=== PATIENT | female | born 1995 | race Caucasian/White ===

== ENCOUNTER 2018-07-12 19:21 | Inpatient (IN) | payer OTHER ==
[~2018-07-12] VITALS: Ht 152.4 cm; Wt 53.5 kg
[~2018-07-12 19:21] MED LIST: ACETAMINOPHEN325 M1 PO; CIPROFLOXACIN500 M1 PO; CLONAZEPAM 0.50.5 M1 PO; DEPRESSION MEDS; DOXYCYCLINE 10100 MG PO; FLAGYL500 MG PO; HYDROCODON-ACE1 EACH PO; IBUPROFEN 600600 M1 PO; IBUPROFEN 800800 MG PO; MACROBID 100 M100 M1 PO; MIRENA; NORCO 5-325 TA1 EACH PO; PRENATAL MULTI1 EAC2 PO; TRAMADOL 50 MG50 MG; ZOLOFT 50 MG TA50 M1 PO
[2018-07-12 19:32] VITALS: BP 102/67
[2018-07-12] MEDS ORDERED: MULTIVITAMIN (19:35)
[2018-07-12] MEDS ORDERED: BIRTH CONTROL (19:35)
[2018-07-12] MEDS ORDERED: SYNTHROID150 MCG PO (19:36)
[2018-07-12 19:55] LABS: AMP/METHAMP Negative (Negative); BARBITURATES Negative (Negative); BENZODIAZEPINES Negative (Negative); COCAINE Negative (Negative); METHADONE Negative (Negative); OPIATES Negative (Negative); PCP Negative (Negative); THC POSITIVE (Negative)
[2018-07-12 19:57] LABS: URINE BILIRUBIN NEGATIVE (Negative); URINE BLOOD 1+ (Negative); URINE CLARITY CLEAR; URINE COLOR YELLOW; URINE GLUCOSE-RANDOM NEGATIVE (Negative); URINE KETONES NEGATIVE (Negative); URINE NITRITE-REFLEX NEGATIVE (Negative); URINE PROTEIN NEGATIVE (Negative); URINE UROBILINOGEN 0.2 E.U./dl (0.2-1.0)
[2018-07-12 19:58] LABS: URINE LEUKOCYTES-REFLEX 2+ (Negative)
[2018-07-12 20:03] LABS: ABSOLUTE BASOPHILS 0.1 thou/uL (0.0-0.2); ABSOLUTE EOSINOPHILS 0.2 thou/uL (0.0-0.7); ABSOLUTE LYMPHOCYTES 1.8 thou/uL (0.8-5.3); ABSOLUTE MONOCYTES 0.5 thou/uL (0.0-1.2); ABSOLUTE NEUTROPHILS 9.7 thou/uL (1.6-8.1); BASOPHILS 1.1 %; EOSINOPHILS 1.5 %; HEMATOCRIT 37.7 % (37.0-47.0); HEMOGLOBIN 12.9 gm/dL (12.0-15.0); LYMPHOCYTES 14.3 %; MCH 31.1 pg (26.0-34.0); MCHC 34.2 g/dL (28.0-37.0); MCV 90.8 fL (80.0-100.0); MONOCYTES 4.4 %; MPV 8.7 fl. (7.2-11.1); NUCLEATED RBCS 0 /100WBC; PLATELET COUNT* 241 thou/uL (150-400); POLYS 78.7 %; RBC 4.15 mil/uL (4.20-5.00); RDW-CV 12.7 % (10.5-14.5); WBC 12.3 thou/uL (4.0-11.0)
[2018-07-12 20:06] LABS: MUCUS 0-3 Light strn/LPF (None Seen); SQUAMOUS 4-10 Moderate /LPF (0-3)
[2018-07-12 20:07] LABS: URINE WBC-REFLEX >25 Many /HPF (0-5)
[2018-07-12 20:08] LABS: CASTS None Seen /LPF (None Seen); CRYSTALS None Seen /LPF (None Seen); URINE RBC 0-2 Rare /HPF (0-2)
[2018-07-12 20:08] LABS: CALCIUM 8.6 mg/dL (8.5-10.1); CREATININE 0.7 mg/dL (0.6-1.3); POTASSIUM 3.8 mmol/L (3.5-5.1)
[2018-07-12 20:09] LABS: WBC CLUMPS Few (None Seen)
[2018-07-12 22:33] VITALS: BP 110/68
[2018-07-13 00:10] VITALS: BP 114/66
[2018-07-13 08:00] VITALS: BP 106/59
[2018-07-13 12:51] VITALS: BP 106/59
[2018-07-13 14:31] VITALS: BP 110/82
[2018-07-13] MEDS ORDERED: CIPRO500 MG PO (18:20)
[2018-07-13] MEDS ORDERED: LEVSIN0.125 MG PO (18:21)
[2018-07-13] MEDS ORDERED: NORCO 5-325 TA1 EACH PO (18:22)
[2018-07-13] MEDS ORDERED: PYRIDIUM200 M2 PO (18:22)
[2018-07-13 20:00] VITALS: BP 111/70
[2018-07-14] VITALS: BP 103/69
[2018-07-14 04:00] VITALS: BP 106/62
[2018-07-14 07:50] VITALS: BP 113/67
[2018-07-14 11:25] VITALS: BP 113/67
--- NOTE | 2018-07-14 16:52 | OP ---
[address] [address] OPERATIVE REPORT Name: KARON GALLEGOS Room: [address] IN .R.#: [id number] Admission: 07/12/18 Attend Phys: Osiel Sanon MD Discharge: Date of : 89 Report #: [id number] THIS REPORT FOR: //name// CC: Osiel Durand DATE OF SERVICE: 07/13/2018 PREOPERATIVE DIAGNOSIS: Right ureteral stone. 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 SURGEON: Osiel Parker MD. PROCEDURE PERFORMED: Cystoscopy with right retrograde pyelogram, ureteroscopy and stent placement. ANESTHESIA: General. ESTIMATED BLOOD LOSS: Minimal. COMPLICATIONS: None. INDICATION FOR PROCEDURE: This is a 23-year-old female who presented with acute flank pain and underwent a CT scan, which revealed a 6-7-mm right UPJ stone. Her options for management were discussed in detail. The risks, benefits, and possible complications were explained in detail to both she and her boyfriend in the preoperative area. They include but not limited to bleeding, infection, damage to surrounding organs such as the urethra, the bladder, the ureter, inability to treat the stone in single setting, requiring secondary procedures, stent irritation and complication from general anesthesia. They had a chance to ask questions, which were answered to their satisfaction and they elected to proceed. DESCRIPTION OF PROCEDURE: After obtaining informed consent, the patient was taken to the operating room and placed in supine position. After adequate general anesthesia and IV antibiotics, she was prepped and draped in the dorsal lithotomy position. A 21-Croatian cystoscope with 30-degree lens was introduced in the bladder. The bladder was systematically inspected. There were no stones, tumors, diverticula. A right retrograde pyelogram was performed using a 5-Croatian open-ended ureteral catheter. Under clinical quality manager imaging, there was a 6-7-mm calcific density overlying the what appeared to be the right ureteropelvic junction. On retrograde pyelogram, there was normal caliber ureter with a slight narrowing proximally until the renal pelvis and calices all filled out. These were inferior to the calcification. Findings [place] [address] OPERATIVE REPORT Name: KARON GALLEGOS Room: [address]#: [id number] Admission: 07/12/18 Attend Phys: Osiel Sanon MD Discharge: Date of : 89 Report #: [id number] partially duplicated collecting system. A sensor guidewire was passed in retrograde fashion and an 01/26 ureteral access sheath was gently passed over the wire and into the mid ureter under fluoroscopic guidance. A second wire was placed as a safety wire and flexible ureteroscopy was carried out through the access sheath up to the mid ureter where the ureter was moderately stenotic and would not allow the scope to pass proximally. It was determined that no further ureteroscopy would be attempted, but several attempts were made to access the upper pole collecting system with the wire using a Pollack catheter as a guide. Unfortunately, no contrast nor the wire would pass into the upper pole collecting system after multiple attempts. It was determined that a stent would be placed in the lower pole ureter for passive dilation and plan for interval lithotripsy or repeat ureteroscopy depending on the patient's preference. A 4.8 x 28 cm double-J stent was passed in retrograde fashion over the wire under fluoroscopic guidance. A good coil was noted overlying the renal pelvis under fluoroscopy and a good coil was directly visualized the bladder. The stone appeared to be superior to the stent, but did move on fluoroscopy indicating that it was within the collecting system and within the kidney. B and O suppository was placed per rectum and Uro-Jet was applied per urethra. The patient was extubated and taken to recovery room in good condition. Plan is to return her care to the floor. She may dismiss home when stable. We will discuss her options, but likely proceed with lithotripsy later this week and follow up with a KUB after that. <ELECTRONICALLY SIGNED> By: Osiel Parker MD 07/14/18 [id number] Parker MD /nt
== END 2018-07-14 15:30 | disposition home or self-care (01) | DRG 661 ==
LOC: M.ERS 19:21 → M.ORTHSURG 21:46 → M.TBA-ER 21:46 → M.ORTHSURG 22:30
PROVIDERS: Emergency Medicine; Nurse Practitioner Family; ADMIT Internal Medicine
DX: N13.6 Pyonephrosis (principal); E03.9 Hypothyroidism, unspecified; F17.210 Nicotine dependence, cigarettes, uncomplicated; Z79.1 Long term (current) use of non-steroidal anti-inflammatories (NSAID); Z79.899 Other long term (current) drug therapy